=== PATIENT | female | born 1970 | race Hispanic/Latino ===

== ENCOUNTER 2023-04-13 10:49 | Inpatient (IN) | payer BC ==
[~2023-04-13] VITALS: Ht 172.7 cm; Wt 108.2 kg
[2023-04-13] MEDS: 0.9%NACL 1000ML 1,000 ML IV SCH ×3 (11:21→23:45)
[2023-04-13 11:27] LABS: BASOPHILS # (AUTO) 0.01 K/uL (0.00-0.20); BASOPHILS % (AUTO) 0.1 % (0.0-5.0); EOSINOPHILS # (AUTO) 0.01 K/uL (0.00-0.70); EOSINOPHILS % (AUTO) 0.1 % (0.0-8.0); IMMATURE GRANULOCYTE ABSOLUTE 0.03 K/uL (0-1); LYMPHOCYTES # (AUTO) 0.9 K/uL (1.0-4.8); LYMPHOCYTES % (AUTO) 8.8 % (21.0-51.0); MEAN CORPUSCULAR HEMOGLOBIN 32.7 pg (27.0-33.0); MEAN CORPUSCULAR VOLUME 96.2 fL (79-99); MONOCYTES # (AUTO) 0.5 K/uL (0.1-1.0); MONOCYTES % (AUTO) 4.7 % (3.0-13.0); NEUTROPHILS # (AUTO) 9.1 K/uL (1.8-7.7); PLATELET COUNT (AUTO) 221 K/uL (130-400); RED BLOOD CELL COUNT(AUTO) 4.16 MIL/uL (4.00-5.50); RED CELL DISTRIBUTION WIDTH 12.5 % (11.0-15.5); WHITE BLOOD COUNT (AUTO) 10.6 K/uL (4.8-10.8)
[2023-04-13] MEDS ORDERED: ONDANSETRON 4MG INJ IVP ONE (11:30)
[2023-04-13 11:41] LABS: CREATININE 0.7 mg/dL (0.5-1.5); POTASSIUM 3.7 mmol/L (3.5-5.1)
[2023-04-13 11:46] LABS: ALBUMIN 3.5 g/dL (3.5-5.0); BILIRUBIN,TOTAL 3.2 mg/dL (0.2-1.0); TOTAL PROTEIN, SERUM 7.2 g/dL (6.0-8.3)
[2023-04-13 11:47] LABS: SARS-CoV-2, RNA, NAAT NEGATIVE SARS CoV-2 (NEGATIVE)
[2023-04-13 11:49] LABS: INFLUENZA TYPE A Negative For Type A (NEGATIVE); INFLUENZA TYPE B Negative For Type B (NEGATIVE)
[2023-04-13 12:44] LABS: APPEARANCE,URINE CLOUDY (CLEAR); BILIRUBIN,URINE NEGATIVE (NEGATIVE); COLOR,URINE YELLOW (YELLOW); GLUCOSE, URINE (UA) NEGATIVE (NEGATIVE); KETONES,URINE NEGATIVE (NEGATIVE); LEUKOCYTE ESTERASE ,URINE NEGATIVE Leu/uL (NEGATIVE); NITRATE,URINE NEGATIVE (NEGATIVE); OCCULT BLOOD,URINE NEGATIVE (NEGATIVE); PROTEIN,URINE NEGATIVE (NEGATIVE); UROBILINOGEN,URINE 0.2 mg/dL (0.2-1.0)
[2023-04-13 12:48] LABS: ADD UA MICROSCOPIC YES; HCG,QUALITATIVE URINE NEGATIVE (NEGATIVE)
[2023-04-13 12:50] LABS: BACTERIA,URINE RARE /HPF (None Seen); SQUAMOUS EPITHELIAL CELL,UR MANY /HPF (0-2)
[2023-04-13] MEDS ORDERED: HYDROMORPHONE 1 MG INJ IVP ONE ×3 (13:00→21:30)
[2023-04-13] MEDS ORDERED: ACETAMINOPHEN 325 MG TAB PO PRN (13:30)
[2023-04-13] MEDS ORDERED: MAG/ALUM/SIMETH 30 ML UDCUP PO PRN (13:30)
[2023-04-13] MEDS ORDERED: GLUCAGON 1MG KIT 1 MG ML IM PRN (13:30)
[2023-04-13] MEDS ORDERED: ZOLPIDEM TARTRATE 5 MG TAB PO PRN (13:30)
[2023-04-13] MEDS ORDERED: NITROGLYCERIN 0.4 MG SL TAB SL PRN (13:30)
[2023-04-13] MEDS ORDERED: ALBUTEROL 0.083% 2.5 MG/3 ML INH IH PRN (13:30)
[2023-04-13] MEDS ORDERED: POLYETHYLENE GLYCOL 3350 17 GM POWD.PACK PO PRN (13:30)
[2023-04-13] MEDS ORDERED: ALPRAZOLAM 0.5 MG TABLET PO PRN (13:30)
[2023-04-13] MEDS ORDERED: DOCUSATE SODIUM 100 MG CAP PO PRN (13:30)
[2023-04-13] MEDS ORDERED: LACTULOSE 20 GM/30 ML UDCUP PO PRN (13:30)
[2023-04-13] MEDS ORDERED: DEXTROSE 50%-WATER 50 ML DISP.SYRIN IV PRN (13:30)
[2023-04-13] MEDS ORDERED: HYDRALAZINE 25MG TABLET PO PRN (13:30)
[2023-04-13] MEDS ORDERED: GUAIFENESIN-DM 200/20 MG 10 ML PO PRN (13:30)
[2023-04-13] MEDS ORDERED: DiphenhydrAMINE HCL 50 MG/ML VIAL IV PRN (13:30)
[2023-04-13] MEDS ORDERED: GUAIFENESIN SUGAR-FREE 100 MG/5 ML UDCUP PO PRN (13:30)
[2023-04-13] MEDS ORDERED: DIPHENHYDRAMINE HCL 25 MG CAPSULE PO PRN (13:30)
[2023-04-13] MEDS: FAMOTIDINE 20MG VIAL IV SCH (21:19)
[2023-04-13 23:20] VITALS: BP 126/91; PULSE 64; RESP 20
[2023-04-14] VITALS (9 sets, daily range): BP systolic 116–164; BP diastolic 63–94; PULSE 57–73; RESP 15–19; O2SAT 100
[2023-04-14] MEDS: ACETAMINOPHEN 325 MG TAB PO PRN ×2 (04:17→08:15)
[2023-04-14] MEDS: ONDANSETRON 4MG INJ IV PRN ×3 (04:20→20:06)
[2023-04-14 05:11] LABS: ALBUMIN 2.8 g/dL (3.5-5.0); BILIRUBIN,TOTAL 5.4 mg/dL (0.2-1.0); CREATININE 0.7 mg/dL (0.5-1.5); POTASSIUM 3.7 mmol/L (3.5-5.1); TOTAL PROTEIN, SERUM 6.1 g/dL (6.0-8.3)
[2023-04-14] MEDS: 0.9%NACL 1000ML 1,000 ML IV SCH ×3 (05:42→20:06)
[2023-04-14] MEDS: FAMOTIDINE 20MG VIAL IV SCH ×2 (08:14→20:06)
[2023-04-14] MEDS ORDERED: HYDROMORPHONE 1 MG INJ IVP PRN (08:30)
[2023-04-14] MEDS ORDERED: POTASSIUM CHLORIDE 20MEQ/100ML 100 ML IV PRN (10:30)
[2023-04-14] MEDS ORDERED: POTASSIUM CHLORIDE 10% ELIXIR 20 MEQ/15 ML UDCUP PO PRN (10:30)
[2023-04-14] MEDS: KCL 20 MEQ ERTAB PO PRN ×2 (12:14→14:50)
[2023-04-14] MEDS: HYDROMORPHONE 1 MG INJ IVP PRN ×3 (14:49→23:39)
[2023-04-14 20:52] LABS: INR < 0.93 (0.85-1.15); PROTHROMBIN TIME 10.6 SEC (9.6-11.6)
[2023-04-14 20:54] LABS: PARTIAL THROMBOPLASTIN TIME 32.5 SEC (26.3-35.5)
[2023-04-15] VITALS (16 sets, daily range): BP systolic 121–152; BP diastolic 72–94; PULSE 55–70; RESP 16–18; O2SAT 98–100
[2023-04-15] MEDS: 0.9%NACL 1000ML 1,000 ML IV SCH ×4 (03:53→20:06)
[2023-04-15] MEDS: ONDANSETRON 4MG INJ IV PRN ×3 (03:57→20:05)
[2023-04-15] MEDS: HYDROMORPHONE 1 MG INJ IVP PRN ×3 (03:58→20:45)
[2023-04-15] MEDS ORDERED: MIDAZOLAM HCL 1 MG/ML 2ML VIAL ONE (06:51)
[2023-04-15] MEDS ORDERED: SUCCINYLCHOLINE 200MG/10ML SYR ONE (06:51)
[2023-04-15] MEDS ORDERED: FENTANYL CITRATE PF 50 MCG/1 ML 2ML VIAL ONE (06:51)
[2023-04-15] MEDS ORDERED: ROCURONIUM 10MG/1ML SYR 10 MG/ML ML ONE (06:51)
[2023-04-15] MEDS ORDERED: PROPOFOL 10 MG/ML 20ML VIAL IV ONE (06:51)
[2023-04-15] MEDS ORDERED: INDOMETHACIN 100 MG SUPP.RECT RC ONE (07:00)
[2023-04-15] MEDS ORDERED: SUCCINYLCHOLINE CHLORIDE 20 MG/ML 10 ML VIAL ONE (07:01)
[2023-04-15] MEDS ORDERED: IOHEXOL-350 50ML VIAL IV ONE (07:12)
[2023-04-15] MEDS: FAMOTIDINE 20MG VIAL IV SCH ×2 (09:26→20:05)
[2023-04-15 10:39] LABS: HEMATOCRIT 34.5 % (36-48); MEAN CORPUSCULAR HEMOGLOBIN 33.2 pg (27.0-33.0); MEAN CORPUSCULAR HGB CONC 33.9 g/dL (32.0-36.0); RED BLOOD CELL COUNT(AUTO) 3.52 MIL/uL (4.00-5.50); RED CELL DISTRIBUTION WIDTH 12.4 % (11.0-15.5); WHITE BLOOD COUNT (AUTO) 10.3 K/uL (4.8-10.8)
[2023-04-15 10:51] LABS: ALBUMIN 2.5 g/dL (3.5-5.0); BILIRUBIN,DIRECT 1.2 mg/dL (0.0-0.3); BILIRUBIN,TOTAL 2.2 mg/dL (0.2-1.0); CREATININE 0.5 mg/dL (0.5-1.5); POTASSIUM 3.6 mmol/L (3.5-5.1); TOTAL PROTEIN, SERUM 6.1 g/dL (6.0-8.3)
[2023-04-15 11:55] LABS: ABG BASE EXCESS -3.9 mmol/L (-2.0-3.0); ABG HCO3 19.2 mmol/L (21.0-28.0); ABG OXYGEN SATURATION 95.7 % (95.0-99.0); ABG PCO2 30 mmHg (32-45); ABG PH 7.421 (7.35-7.450); PO2, ARTERIAL BG 76.5 mmHg (83.0-108.0); VENT MODE, BG RA (ROOM AIR)
[2023-04-16 04:26] VITALS: BP 142/84; PULSE 64; RESP 18
[2023-04-16] MEDS: 0.9%NACL 1000ML 1,000 ML IV SCH ×3 (05:22→19:57)
[2023-04-16 06:22] LABS: HEMATOCRIT 33.9 % (36-48); MEAN CORPUSCULAR HEMOGLOBIN 32.9 pg (27.0-33.0); MEAN CORPUSCULAR HGB CONC 33.9 g/dL (32.0-36.0); MEAN CORPUSCULAR VOLUME 96.9 fL (79-99); RED BLOOD CELL COUNT(AUTO) 3.5 MIL/uL (4.00-5.50); RED CELL DISTRIBUTION WIDTH 12.3 % (11.0-15.5); WHITE BLOOD COUNT (AUTO) 7.7 K/uL (4.8-10.8)
[2023-04-16 06:32] LABS: BILIRUBIN,DIRECT 0.8 mg/dL (0.0-0.3); BILIRUBIN,TOTAL 1.4 mg/dL (0.2-1.0); CREATININE 0.4 mg/dL (0.5-1.5); POTASSIUM 3.6 mmol/L (3.5-5.1)
[2023-04-16 07:46] VITALS: BP 140/82; PULSE 62; RESP 16
[2023-04-16 08:00] VITALS: O2SAT 99
[2023-04-16] MEDS: FAMOTIDINE 20MG VIAL IV SCH ×2 (09:03→19:57)
[2023-04-16] MEDS: KCL 20 MEQ ERTAB PO PRN ×2 (09:03→15:18)
[2023-04-16] MEDS: LEVOFLOXACIN 750 MG/D5W 150ML BAG IV SCH (09:03)
[2023-04-16 12:00] VITALS: BP 152/80; PULSE 63; RESP 16
[2023-04-16] MEDS: METRONIDAZOLE 500MG/100ML BAG 100 ML IVPB SCH ×2 (13:03→19:57)
[2023-04-16 16:00] VITALS: BP 144/87; PULSE 65; RESP 16
[2023-04-16 19:20] VITALS: BP 155/83; PULSE 58; RESP 18; O2SAT 98
[2023-04-17] VITALS (7 sets, daily range): BP systolic 136–153; BP diastolic 71–98; PULSE 59–72; RESP 18–20; O2SAT 97
[2023-04-17] MEDS: 0.9%NACL 1000ML 1,000 ML IV SCH ×4 (02:41→22:22)
[2023-04-17] MEDS: METRONIDAZOLE 500MG/100ML BAG 100 ML IVPB SCH (05:18)
[2023-04-17] MEDS: LEVOFLOXACIN 750 MG/D5W 150ML BAG IV SCH (08:38)
[2023-04-17] MEDS: FAMOTIDINE 20MG VIAL IV SCH (09:00)
[2023-04-17] MEDS: PANTOPRAZOLE 40 MG/VIAL IVP SCH (09:38)
[2023-04-17] MEDS: ONDANSETRON 4MG INJ IV PRN (14:26)
[2023-04-18] VITALS (27 sets, daily range): BP systolic 96–146; BP diastolic 59–97; PULSE 55–74; RESP 15–20; O2SAT 97
[2023-04-18] MEDS: 0.9%NACL 1000ML 1,000 ML IV SCH ×3 (04:50→18:10)
[2023-04-18 05:49] LABS: HEMATOCRIT 36.1 % (36-48); MEAN CORPUSCULAR HEMOGLOBIN 32.8 pg (27.0-33.0); MEAN CORPUSCULAR HGB CONC 34.1 g/dL (32.0-36.0); MEAN CORPUSCULAR VOLUME 96.3 fL (79-99); RED BLOOD CELL COUNT(AUTO) 3.75 MIL/uL (4.00-5.50); RED CELL DISTRIBUTION WIDTH 12.3 % (11.0-15.5); WHITE BLOOD COUNT (AUTO) 5.5 K/uL (4.8-10.8)
[2023-04-18 06:06] LABS: CREATININE 0.6 mg/dL (0.5-1.5); MAGNESIUM 1.8 mg/dL (1.80-2.40); POTASSIUM 3.7 mmol/L (3.5-5.1)
[2023-04-18] MEDS ORDERED: PROPOFOL 10 MG/ML 20ML VIAL IV ONE (08:05)
[2023-04-18] MEDS ORDERED: ONDANSETRON 4MG INJ ONE ×2 (08:05→11:09)
[2023-04-18] MEDS ORDERED: GLYCOPYRROLATE 1 MG/5 ML SYRINGE ONE (08:05)
[2023-04-18] MEDS ORDERED: LIDOCAINE PF 100MG/5ML (2%) SYRINGE 5ML ONE (08:05)
[2023-04-18] MEDS ORDERED: DEXAMETHASONE SOD PHOSPHATE 10MG/ML 1ML VIAL ONE (08:05)
[2023-04-18] MEDS ORDERED: SUCCINYLCHOLINE 200MG/10ML SYR ONE (08:05)
[2023-04-18] MEDS ORDERED: NEOSTIGMINE 5MG/5ML SYR IV ONE (08:05)
[2023-04-18] MEDS ORDERED: ROCURONIUM 10MG/1ML SYR 10 MG/ML ML ONE (08:05)
[2023-04-18] MEDS ORDERED: BUPIVACAINE/PF 0.25% 30ML VIAL IJ ONE (08:07)
[2023-04-18] MEDS ORDERED: LIDOCAINE HCL 1% 20 ML VIAL ONE (08:07)
[2023-04-18] MEDS ORDERED: MIDAZOLAM HCL 1 MG/ML 2ML VIAL ONE (08:08)
[2023-04-18] MEDS ORDERED: FENTANYL CITRATE PF 50 MCG/1 ML 5ML AMP IV ONE (08:08)
[2023-04-18] MEDS: PANTOPRAZOLE 40 MG/VIAL IVP SCH (08:14)
[2023-04-18] MEDS: LEVOFLOXACIN 750 MG/D5W 150ML BAG IV SCH ×2 (08:14→08:24)
[2023-04-18] MEDS ORDERED: MORPHINE PF 100MG/10ML AMP IV ONE (09:42)
[2023-04-18] MEDS ORDERED: MEPERIDINE-PF 25 MG/ML SYG ONE ×2 (10:23→11:10)
[2023-04-18] MEDS: HYDROMORPHONE 1 MG INJ IVP PRN ×2 (16:40→22:51)
[2023-04-19] VITALS: BP 116/62; PULSE 60; RESP 18
[2023-04-19] MEDS: 0.9%NACL 1000ML 1,000 ML IV SCH (00:50)
[2023-04-19 04:00] VITALS: BP 129/81; PULSE 56; RESP 18
[2023-04-19 05:32] LABS: HEMATOCRIT 35.4 % (36-48); MEAN CORPUSCULAR HGB CONC 33.9 g/dL (32.0-36.0); MEAN CORPUSCULAR VOLUME 97.3 fL (79-99); RED BLOOD CELL COUNT(AUTO) 3.64 MIL/uL (4.00-5.50); RED CELL DISTRIBUTION WIDTH 12.3 % (11.0-15.5); WHITE BLOOD COUNT (AUTO) 9.2 K/uL (4.8-10.8)
[2023-04-19 06:13] LABS: ALBUMIN 2.4 g/dL (3.5-5.0); BILIRUBIN,DIRECT 0.5 mg/dL (0.0-0.3); BILIRUBIN,TOTAL 0.8 mg/dL (0.2-1.0); CREATININE 0.7 mg/dL (0.5-1.5); MAGNESIUM 1.8 mg/dL (1.80-2.40); POTASSIUM 3.9 mmol/L (3.5-5.1); TOTAL PROTEIN, SERUM 6.3 g/dL (6.0-8.3)
[2023-04-19 07:45] VITALS: O2SAT 97
[2023-04-19 08:00] VITALS: BP 131/78; PULSE 52; RESP 17
[2023-04-19] MEDS ORDERED: ACETAMINOPHEN WITH CODEINE 1 TAB TAB PO PRN (08:30)
[2023-04-19] MEDS ORDERED: KETOROLAC 15MG/ML VIAL (15MG/ML) IV PRN (08:30)
[2023-04-19] MEDS ORDERED: DOCUSATE SODIUM 100 MG CAP PO SCH (09:00)
[2023-04-19] MEDS: PANTOPRAZOLE 40 MG/VIAL IVP SCH (09:18)
[2023-04-19 12:00] VITALS: BP 128/83; PULSE 56; RESP 18
[2023-04-19] MEDS ORDERED: ACET-2079 PO (14:07)
[2023-04-19] MEDS ORDERED: DOCU-116 PO (14:07)
[2023-04-19 16:00] VITALS: BP 127/86; PULSE 59; RESP 18
== END 2023-04-19 16:30 | disposition home or self-care (01) | DRG 417 ==
LOC: EDH 10:49 → EDHIP 13:18 → 4CH 23:05 → 3AH 04-15 13:33
PROVIDERS: ADMIT Internal Medicine Critical Care Medicine; ATTEND Internal Medicine Critical Care Medicine
PROC: 0FC98ZZ Extirpation of Matter from Common Bile Duct, Via Natural or Artificial Opening Endoscopic (ICD-10-PCS; principal; 2023-04-15)
PROC: BF131ZZ Fluoroscopy of Gallbladder and Bile Ducts using Low Osmolar Contrast (ICD-10-PCS; 2023-04-15)
PROC: 0FT44ZZ Resection of Gallbladder, Percutaneous Endoscopic Approach (ICD-10-PCS; 2023-04-18)
DX: K80.30 Calculus of bile duct with cholangitis, unspecified, without obstruction (principal); K85.10 Biliary acute pancreatitis without necrosis or infection; E78.5 Hyperlipidemia, unspecified; Z20.822 Contact with and (suspected) exposure to COVID-19; E66.01 Morbid (severe) obesity due to excess calories; K66.0 Peritoneal adhesions (postprocedural) (postinfection); Z68.36 Body mass index [BMI] 36.0-36.9, adult
CPT/HCPCS: 36415; 36600; 43262; 43264; 71045; 74176; 74181; 74328; 74330; 80048; 80053; 80076; 81001; 81025; 82140; 82247; 82248; 82803; 83615; 83690; 83735; 84478; 85025; 85027; 85610; 85730; 87635; 87804; 88304; 93005; A4606; C1769; C1773; C9113; C9803; G0378; J0330; J1100; J1170; J1956; J2001; J2175; J2250; J2274; J2405; J2704; J2710; J3010; J3490; J7030; Q9967; A4215; A4216; A4221; A4222; A4223; A4600; A4615; A4649; A4657; A4663; A6206; A7002; S8037